=== PATIENT | male | born 1945 | race Caucasian/White ===

== ENCOUNTER 2022-11-19 17:36 | Emergency (ER) | payer MEDICARE ==
[~2022-11-19] VITALS: Ht 167.6 cm; Wt 64.4 kg
[~2022-11-19 17:36] MED LIST: ALBU90OI INH; ASPI81EC PO; ESCI10 PO; FISH1000 PO; FOLI1 PO; Inderal40 MG; METTREX2.5 PO; Monodox100 MG PO; PRED20 PO; PRIM50 PO; Percocet 5-3251 EACH PO; SIMV5 PO; SIMV80 PO; TRAZ100 PO; TRIA80TC; Ventolin Soln3 ML INH
[2022-11-19] MEDS ORDERED: Primidone50 MG PO (18:08)
[2022-11-19] MEDS ORDERED: ESCI20 PO (18:08)
[2022-11-19] MEDS ORDERED: LISI5 PO (18:08)
[2022-11-19] MEDS ORDERED: Ventolin/Prove6.7 GM (18:08)
[2022-11-19] MEDS ORDERED: SYMBICORT 16010.2 GM (18:09)
[2022-11-19] MEDS ORDERED: ATOR40TA PO (18:09)
[2022-11-19] MEDS ORDERED: PRAZ2 PO (18:09)
[2022-11-19] MEDS ORDERED: PROP10 PO (18:09)
[2022-11-19] MEDS ORDERED: AMLODIPINE BESYL5 MG PO (18:10)
[2022-11-19] MEDS ORDERED: LEVOCETIRIZINE D5 MG PO (18:10)
[2022-11-19 18:39] LABS: BASOPHILS ABSOLUTE AUTO 0.06 K/mm3 (0.00-0.23); BASOPHILS PERCENT AUTO 1 % (0-2); EOSINOPHILS ABSOLUTE AUTO 0.15 K/mm3 (0.00-0.68); EOSINOPHILS PERCENT AUTO 2 % (0-6); Hematocrit 38.7 % (37.0-53.0); Hemoglobin 13.4 g/dL (13.5-17.5); IMMATURE GRAN ABSOLUTE AUTO 0.02 K/mm3 (0.00-0.10); IMMATURE GRAN PERCENT AUTO 0 % (0-1); LYMPHOCYTES ABSOLUTE AUTO 2.71 K/mm3 (0.84-5.20); LYMPHOCYTES PERCENT AUTO 36 % (21-46); MONOCYTES ABSOLUTE AUTO 0.95 K/mm3 (0.16-1.47); MONOCYTES PERCENT AUTO 13 % (4-13); Mean Corpuscular HGB 33.1 pg (26.0-34.0); Mean Corpuscular HGB Conc 34.6 g/dL (31.5-36.5); Mean Corpuscular Volume 96 fL (80-100); NEUTROPHILS ABSOLUTE AUTO 3.58 K/mm3 (1.96-9.15); NEUTROPHILS PERCENT AUTO 48 % (41-73); Platelet Count 205 K/mm3 (150-400); RDW Standard Deviation 45.6 fL (35.1-46.3); Red Blood Cell Count 4.05 M/mm3 (4.30-5.90); White Blood Cell Count 7.47 K/mm3 (4.00-11.30)
[2022-11-19 18:51] LABS: Albumin, Blood 3.4 g/dL (3.4-5.0); Albumin/Globulin Ratio 1.2 (0.8-1.8); Bilirubin, Total 0.5 mg/dL (0.1-1.0); Bun/Creatinine Ratio 15.8 (12.0-20.0); Calcium, Blood 8.2 mg/dL (8.5-10.1); Creatinine, Blood 0.88 mg/dL (0.60-1.20); Globulin, Blood 2.8 g/dL (2.2-4.0); Potassium, Blood 3.3 mmol/L (3.5-5.5); Total Protein, Blood 6.2 g/dL (6.4-8.2)
[2022-11-19 19:04] LABS: Source, Urine Clean Catch
[2022-11-19 19:13] LABS: Appearance, Urine Clear (Clear); Bilirubin, Urine Neg (Neg); Blood, Urine Neg (Neg); Glucose Qualitative, Urine Neg (Neg); Ketones, Urine Neg (Neg); Leukocyte Esterase, Urine Neg (Neg); Nitrite, Urine Neg (Neg); Protein, Urine Neg (Neg); Specific Gravity, Urine 1.005 (1.003-1.022); Urobilinogen, Urine NORM (Normal)
[2022-11-19 19:24] LABS: Color, Urine Pale Yellow (P-Yellow)
[2022-11-19 21:00] VITALS: BP 132/67
== END 2022-11-19 21:15 | disposition home or self-care (01) ==
LOC: ER 17:36
PROVIDERS: Emergency Medicine
DX: T67.5XXA Heat exhaustion, unspecified, initial encounter (principal); Z88.5 Allergy status to narcotic agent; Z79.899 Other long term (current) drug therapy; Z79.82 Long term (current) use of aspirin; J45.909 Unspecified asthma, uncomplicated; I10 Essential (primary) hypertension; E78.5 Hyperlipidemia, unspecified; E11.9 Type 2 diabetes mellitus without complications; F43.10 Post-traumatic stress disorder, unspecified; Z87.891 Personal history of nicotine dependence
CPT/HCPCS: 80053; 81003; 82550; 85025; 93005; 93010; A9270